=== PATIENT | female | born 1965 | race Caucasian/White ===

== ENCOUNTER 2016-06-04 19:30 | Emergency (ER) | payer MEDICAID ==
[~2016-06-04] VITALS: Ht 154.9 cm; Wt 63.6 kg
[~2016-06-04 19:30] MED LIST: 00186-0372-20; 00186-0372-20 IH; AMBIEN 5MG TABLE5 MG PO; CEPHALEXIN500 M1 PO; KLONOPIN 0.5MG0.5 MG PO; LAMICTAL XR100 MG PO; LEVAQUIN 5500 MG/TA1 PO; MOBIC15 MG PO; NORCO 325 MG-7.1 TAB PO; PAXIL 20MG20 MG PO; PHENERGAN 25 TA25 MG PO; PROAIR HFA0.09 MG/AC IH; PROZAC 20MG20 MG PO; RT SPIRIVA18 MCG IH; WELLBUTRIN SR150 M1
[2016-06-04 19:36] VITALS: BP 147/86; TEMP 98.9
[2016-06-04] MEDS ORDERED: GEODON 20 MG20 MG PO (19:40)
[2016-06-04] MEDS ORDERED: BUSPAR5 MG (19:40)
[2016-06-04] MEDS ORDERED: KLONOPIN 1MG1 MG PO (19:57)
[2016-06-04] MEDS ORDERED: ULTRAM 50MG TAB50 MG PO (19:57)
[2016-06-04 20:06] VITALS: PULSE 78
== END 2016-06-04 20:14 | disposition home or self-care (01) ==
LOC: COL.ER 19:30
DX: F41.9 Anxiety disorder, unspecified (principal); S20.362A Insect bite (nonvenomous) of left front wall of thorax, initial encounter; S40.861A Insect bite (nonvenomous) of right upper arm, initial encounter; W57.XXXA Bitten or stung by nonvenomous insect and other nonvenomous arthropods, initial encounter
CPT/HCPCS: J1885

== ENCOUNTER 2016-08-25 20:31 | Emergency (ER) | payer MEDICAID ==
[~2016-08-25] VITALS: Ht 154.9 cm; Wt 62.2 kg
[~2016-08-25 20:31] MED LIST changes: +BUSPAR5 MG; +GEODON 20 MG20 MG PO; +KLONOPIN 1MG1 MG PO; +ULTRAM 50MG TAB50 MG PO
[2016-08-25 20:44] VITALS: TEMP 98.2
[2016-08-25] MEDS ORDERED: PREDNISONE20 MG PO (22:17)
[2016-08-25] MEDS ORDERED: ZITHROMAX 250M250 MG PO (22:17)
[2016-08-25 22:19] VITALS: BP 136/87; PULSE 60
== END 2016-08-25 22:27 | disposition home or self-care (01) ==
LOC: COL.ER 20:31
DX: J44.0 Chronic obstructive pulmonary disease with (acute) lower respiratory infection (principal); J20.9 Acute bronchitis, unspecified; J44.1 Chronic obstructive pulmonary disease with (acute) exacerbation; F32.9 Major depressive disorder, single episode, unspecified; F17.210 Nicotine dependence, cigarettes, uncomplicated; R42 Dizziness and giddiness
CPT/HCPCS: J7512

== ENCOUNTER 2021-07-03 15:24 | Emergency (ER) | payer MEDICAID ==
[~2021-07-03] VITALS: Ht 154.9 cm; Wt 55.5 kg
[~2021-07-03 15:24] MED LIST changes: +PREDNISONE20 MG PO; +ZITHROMAX 250M250 MG PO
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
[2021-07-03 16:43] LABS: HEMOGLOBIN 14.1 g/dl (12.5-16.0); MEAN CELL VOLUME 92 fl (80.0-100.0); MEAN CORPUSCULAR HEMOGLOBIN 32 pg (27-31); MEAN CORPUSCULAR HGB CONC 35 g/dl (33.0-37.0); MEAN PLATELET VOLUME 9.3 fl (7.4-10.4); PLATELET COUNT 237 K/mm3 (130-400); RED BLOOD COUNT 4.35 M/mm3 (4.10-5.30); REDCELL DISTRIBUTION WIDTH-CV 13.1 % (11.5-14.5)
[2021-07-03 17:01] LABS: ALBUMIN 3.6 gm/dL (3.5-5.0); BILIRUBIN,TOTAL 0.2 mg/dL (0.2-1.2); CALCIUM 9.7 mg/dL (8.4-10.2); CREATININE, serum 0.7 mg/dL (0.57-1.11); POTASSIUM 4.2 mmol/L (3.5-4.5); TOTAL PROTEIN 7.4 gm/dL (6.2-8.1)
[2021-07-03 17:34] LABS: BAND 2 % (0-10); BASOPHIL 1 % (0-2); EOSINOPHIL 2 % (0-4); LYMPHOCYTE 46 % (20.0-51.0); NEUTROPHILS 45 % (42.0-75.2); PLATELET ESTIMATE NORMAL (NORMAL)
[2021-07-03 17:35] LABS: COLLECTION METHOD CLEAN CATCH
[2021-07-03 17:48] LABS: PH 7 (5-8); SQUAMOUS EPITHELIAL 0-2 /hpf (0-10); URINE APPEARANCE Hazy (CLEAR/HAZY); URINE BACTERIA Rare /hpf (NONE SEEN); URINE BILIRUBIN Negative (NEGATIVE); URINE BLOOD Negative (NEGATIVE); URINE COLOR Yellow (YELLOW); URINE GLUCOSE Negative (NEGATIVE); URINE KETONE Negative (NEGATIVE); URINE LEUKOCYTE ESTERASE 3+ (NEGATIVE); URINE NITRATE Positive (NEGATIVE); URINE PROTEIN(semi-quant) Negative (NEGATIVE); URINE UROBILINOGEN Negative (NEGATIVE)
[2021-07-03] MEDS ORDERED: NORCO 325 MG-51 TAB PO (17:59)
[2021-07-03 19:01] VITALS: BP 170/93; PULSE 70
== END 2021-07-03 19:06 | disposition home or self-care (01) ==
LOC: COL.ER 15:24
PROVIDERS: Physician Assistant
DX: S09.90XA Unspecified injury of head, initial encounter (principal); S92.512A Displaced fracture of proximal phalanx of left lesser toe(s), initial encounter for closed fracture; N39.0 Urinary tract infection, site not specified; F17.200 Nicotine dependence, unspecified, uncomplicated; Z59.00 Homelessness unspecified; Z59.01 Sheltered homelessness; Y04.2XXA Assault by strike against or bumped into by another person, initial encounter; Y92.410 Unspecified street and highway as the place of occurrence of the external cause
CPT/HCPCS: J2270; J7030